=== PATIENT | male | born 1975 | race Caucasian/White ===

== ENCOUNTER 2016-03-29 10:48 | Outpatient (RCR) | payer BC ==
[~2016-03-29 10:48] MED LIST: ACHD5005 PO; HYDR-3454 PO
--- OUTSIDE RECORDS SUMMARY | 2016-03-29 10:51 | XMS REPORT | Continuity of Care Document ---
Author Author [facility] Organization [facility] Address Unknown Phone Unavailable Care Team Providers Care Cured [employer] P[employer] Supervisor Name Role Phone Garcia Zazueta III PCP [phone] Source Comments Some departments are not documenting in the electronic medical record. If you do not see the information that you expected, contact Release of Information in the Health Information Management department at [phone] for further assistance in locating additional records.[facility] Active Allergies and Adverse Reactions Allergen Noted Date Severity Reactions Comments Pcn 09/14/2014 Low UNKNOWN Sulfa (Sulfonamide 09/14/2014 Low UNKNOWN Antibiotics) Current Medications Prescription Sig. Disp. Refills Start End Date Status Date lisinopril (PRINIVIL; Take 5 mg by mouth daily. Active ZESTRIL) 5 mg tablet metoprolol XL (TOPROL XL) Take 25 mg by mouth Active 25 mg tablet daily. Active Problems Problem Noted Date Congenital pulmonary vein stenosis Aortic regurgitation Left ventricular hypertrophy Tricuspid regurgitation Thoracic aortic aneurysm (HCC) Cardiomegaly Aortic regurgitation Dilated aortic root (HCC) Congenital pulmonary vein stenosis Thoracic aortic aneurysm (HCC) Most Recent Encounters Date Type Specialty Providers Description 03/28/2016 Orders Only Cardiothoracic Surgery Kristin Grove RN Thoracic aortic aneurysm without rupture (HCC) (Primary Dx) Social History Tobacco Use Types Packs/Day Years Used Date Former Smoker 4 Quit: 04/15/1992 Alcohol Use Drinks/Week oz/Week Comments Yes 4 Standard 2.0 drinks or equivalent Last Filed Vital Signs Vital Sign Reading Time Taken Blood Pressure 142/84 03/15/2015 12:46 PM [employer]OR [employer]ODGE CLERK Pulse 72 09/14/2014 1:44 PM CDT Temperature - - Respiratory Rate - - Height 1.854 m (6' 1") 03/15/2015 12:46 PM [employer]OD[employer] CLERK Weight 95.255 kg (210 lb) 03/15/2015 12:46 PM [employer] LODGE CLERK Body Mass Index 27.71 03/15/2015 12:46 PM MOTOR LODGE CLERK Oxygen Saturation 98% 09/14/2014 1:44 PM CDT Plan of Care Date Type Specialty Providers Description 04/10/2016 Appointment Cardiothoracic Surgery JaceyDouglas MD [address] [facility] [address] [place] [address] [phone] (Fax) Health Maintenance Due Date Last Done Comments Physical (Comprehensive) 1980 Exam Pertussis Vaccine 1984 Tetanus Vaccine 1990 Influenza Vaccine 12/15/2015 Results from Last 3 Months Not on file
== END 2016-06-27 | disposition home or self-care (01) ==
LOC: CARD 10:48
PROVIDERS: ATTEND Internal Medicine Cardiovascular Disease
DX: I71.2 Thoracic aortic aneurysm, without rupture (principal); R07.9 Chest pain, unspecified; H34.9 Unspecified retinal vascular occlusion; I35.1 Nonrheumatic aortic (valve) insufficiency
CPT/HCPCS: 93225; 93226

== ENCOUNTER → 2019-03-13 | Outpatient (CLI) | payer OTHER ==
[2019-03-13 09:14] LABS: INR 1.2 (0.8-1.4); PROTHROMBIN TIME PATIENT 15.8 SEC (12.2-14.7)
== END ==
LOC: LAB 08:50
PROVIDERS: ATTEND Internal Medicine Cardiovascular Disease
DX: Z51.81 Encounter for therapeutic drug level monitoring (principal); Z95.2 Presence of prosthetic heart valve
CPT/HCPCS: 36415; 85610

== ENCOUNTER 2019-10-05 08:11 | Outpatient (RCR) | payer OTHER | END 2020-01-03 | disposition home or self-care (01) | LOC: CARD 08:11 | PROVIDERS: ATTEND Internal Medicine Cardiovascular Disease | DX: I11.9 Hypertensive heart disease without heart failure (principal); Q22.1 Congenital pulmonary valve stenosis; R42 Dizziness and giddiness; R00.1 Bradycardia, unspecified | CPT/HCPCS: 93225; 93226 ==

== ENCOUNTER → 2020-01-18 | Outpatient (CLI) | payer OTHER | LOC: CARD 11:30 | PROVIDERS: ATTEND Physician Assistant | DX: I36.1 Nonrheumatic tricuspid (valve) insufficiency (principal); Q22.1 Congenital pulmonary valve stenosis; I10 Essential (primary) hypertension; H34.9 Unspecified retinal vascular occlusion; Z95.2 Presence of prosthetic heart valve | CPT/HCPCS: 93306 ==

== ENCOUNTER → 2021-05-16 | Outpatient (CLI) | payer OTHER | LOC: CARD 11:30 | PROVIDERS: ATTEND Internal Medicine Cardiovascular Disease | DX: I11.9 Hypertensive heart disease without heart failure (principal); I08.8 Other rheumatic multiple valve diseases; Z95.2 Presence of prosthetic heart valve | CPT/HCPCS: 93306 ==

== ENCOUNTER 2021-12-27 06:29 | Outpatient (CLI) | payer OTHER ==
[~2021-12-27] VITALS: Ht 180.3 cm; Wt 95.3 kg
[2021-12-27] MEDS ORDERED: MTP25TSR PO (12:17)
[2021-12-27] MEDS ORDERED: ASPI-1238 PO (12:17)
[2021-12-27] MEDS ORDERED: LOSA50TA63 PO (12:17)
== END 2021-12-27 12:24 | disposition home or self-care (01) ==
LOC: PREOP 06:29
PROVIDERS: ATTEND Surgery
DX: Z01.818 Encounter for other preprocedural examination (principal)

== ENCOUNTER 2022-01-09 07:05 | Day surgery (SDC) | payer OTHER ==
[~2022-01-09] VITALS: Ht 180.3 cm; Wt 95.3 kg
[~2022-01-09 07:05] MED LIST changes: +ASPI-1238 PO; +LOSA50TA63 PO; +MTP25TSR PO
[2022-01-09 07:20] VITALS: BP 126/102
[2022-01-09] MEDS ORDERED: LACTATED RINGERS 1,000 ML IV STA (07:22)
[2022-01-09] MEDS ORDERED: HURRICAINE EXT TUBE (BENZOCAINE) XX PRN (07:30)
[2022-01-09] MEDS ORDERED: MIDAZOLAM 2 MG/2 ML (VERSED) VIAL ONE (07:46)
[2022-01-09] MEDS ORDERED: PROPOFOL INJECTION 50 ML IV ONE (07:46)
--- NOTE | 2022-01-09 07:52 | Progress Note-Pre Operative ---
Pre-Operative Progress Note Date of Available H&P: Dec 20, 2021 Date H&P Reviewed: Jan 09, 2022 Time H&P Reviewed: 07:49 History & Physical: H&P Reviewed, Patient Examed, No changes noted Pre-Operative Diagnosis: elevated cea SHONNA LARA DO Jan 09, 2022 07:52
[2022-01-09 08:20] VITALS: BP 112/76
[2022-01-09 08:25] VITALS: BP 163/89
--- NOTE | 2022-01-09 08:28 | Discharge Inst-Simple/Standard ---
Discharge Inst-Standard Patient Instructions/Follow Up Plan of Care/Instructions/FU: 2 weeks Christiana Activity as Tolerated: Yes Discharge Diet: Regular Diet (high fiber) SHONNA LARA DO Jan 09, 2022 08:28
[2022-01-09 08:50] VITALS: BP 158/80
[2022-01-09 08:55] VITALS: BP 158/80
--- NOTE | 2022-01-09 11:10 | OPERATIVE REPORT ---
DATE OF SERVICE: 01/09/2022 PREOPERATIVE DIAGNOSIS: Elevated CEA. POSTOPERATIVE DIAGNOSES: Normal EGD, diverticulosis, cecal inflammation. SURGEON: Shonna Villeda DO. ANESTHESIA: Per SENIOR QA ANALYST. PROCEDURES PERFORMED: EGD with biopsies and colonoscopy with cold biopsy of the cecum. INDICATIONS FOR PROCEDURE: The patient is a 46-year-old male with screening of blood work that demonstrated an elevated CEA. We discussed doing an EGD and colonoscopy for further evaluation. He understands risks and benefits of the procedure and wished to proceed. Consent was signed in the chart. DESCRIPTION OF PROCEDURE: The patient was taken to the endoscopy suite and placed in the left lateral recumbent position. A timeout was performed. Scope was inserted in the mouth, down the esophagus, stomach and into the duodenum without difficulty. No polyps, masses or ulcerations within the duodenum. Scope was slowly retracted back into the stomach, where it was further insufflated. No polyps, masses or ulcerations. Biopsy of the antrum was obtained. Scope was retroflexed noting no other pathology. Scope was returned to its normal position, slowly withdrawn to distal esophagus. Biopsy of the GE junction was obtained. Scope was slowly retracted back until completely removed noting no other pathology. Digital rectal exam was performed. No palpable polyps, masses or ulcerations. Prostate had normal size without any nodules. Scope was inserted in the rectum and advanced all the way to cecum with minimal difficulty. Prep was adequate with irrigation and suction. In the cecum, there was a very small area of some inflammation. Cold biopsy of this area was obtained. Scope was then slowly retracted back. No polyps, masses or ulcerations within the cecum, ascending, transverse, descending, and sigmoid colon. In the sigmoid colon, there was some diverticulosis present. Scope was continuously retracted back into the rectum, where it was also retroflexed noting no other pathology. Scope was returned to its normal position, slowly withdrawn until completely removed. The patient tolerated the procedure well without any complications and taken to the recovery room in stable condition. RECOMMENDATIONS: The patient will follow up in 2 weeks to discuss pathology results. We will repeat colonoscopy in 10 years unless family history of colon cancer or personal history of polyps, which would then be 5 years. Any issues before that be seen at that time. We would consider repeating CEA level. Job ID: [id number] DocumentID: [id number] Dictated Date: 01/09/2022 08:32:27 Emergency Communications Officer Date: 01/09/2022 11:09:45 Dictated By: SHONNA VILLEDA DO
--- NOTE | 2022-01-09 11:52 | Anesthesia-General Post-Op ---
MAC Patient Condition Mental Status/LOC: Same as Preop Cardiovascular: Satisfactory Nausea/Vomiting: Absent Respiratory: Satisfactory Pain: Controlled Complications: Absent Post Op Complications Complications None Follow Up Care/Instructions Patient Instructions None needed. Anesthesiology Discharge Order Discharge Order Patient is doing well, no complaints, stable vital signs, no apparent adverse anesthesia problems. No complications reported per nursing. CATRINA GODWIN CRNA Jan 09, 2022 11:52
== END 2022-01-09 08:55 | disposition home or self-care (01) ==
LOC: ENDO 07:05
PROVIDERS: ATTEND Surgery
DX: K29.50 Unspecified chronic gastritis without bleeding (principal); K31.89 Other diseases of stomach and duodenum; K57.30 Diverticulosis of large intestine without perforation or abscess without bleeding; K52.9 Noninfective gastroenteritis and colitis, unspecified; E66.9 Obesity, unspecified; Z68.29 Body mass index [BMI] 29.0-29.9, adult
CPT/HCPCS: 88305

== ENCOUNTER → 2022-08-29 | Outpatient (CLI) | payer OTHER ==
[~2022-08-29] MED LIST changes: +HOLD METFORMIN - RECEIVED CONTRAST 20 ML VIAL IV SCH; +IOHEXOL 350 MG/ML 100 ML (OMNIPAQUE 350) VIAL IV ONE; +NS 100 ML (IVPB) BAG IV ONE
--- NOTE | 2022-08-29 08:44 | Diagnostic Imaging Report ---
EXAMINATION: CT angiography of the chest. TECHNIQUE: Contrast enhanced thin section helical images were obtained through the chest with intravenous contrast timed for the optimal opacification of the arterial structures per CTA protocol. Post-processing, reconstructions and interpretation of angiographic images of the vessels was performed. 3D MIP reconstructions were performed and reviewed. All CT scans use one or more of the following dose optimizing techniques: automated exposure control, MA and/or KvP adjustment based on a patient size and exam type, or iterative reconstruction. HISTORY: Thoracic aortic aneurysm status post repair COMPARISON: 05/27/2014 FINDINGS: Vascular: The main pulmonary artery is dilated up to 5.0 cm. Surgical changes of the aortic root. The proximal ascending thoracic aorta measures 4.2 cm. There is aneurysmal dilatation of the aortic arch measured up to 3.9 cm. No significant stenosis or dissection. Thyroid: The thyroid is normal. Mediastinum: Heart size is normal without significant pericardial effusion. No suspicious lymphadenopathy. Lungs and airways: The lungs are clear without consolidation, pleural effusion, or pneumothorax. There is atelectasis within the dependent lungs. The airways are normal. Upper abdomen: The subphrenic structures are normal. Musculoskeletal: Degenerative changes of the spine without suspicious osseous lesion or compression fracture. 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 IMPRESSION: 1. Aneurysmal dilatation of the aortic arch measuring up to 3.9 cm. 2. Surgical changes from aortic valve repair with mild aneurysmal dilatation of the proximal ascending thoracic aorta measuring up to 4.2 cm. 3. No other acute abnormality in the chest. 4. Stable enlargement of the main pulmonary artery up to 5.0 cm which can be seen with pulmonary arterial hypertension. Dictated by: Dictated on workstation # [id number]
== END ==
LOC: RAD 07:39
PROVIDERS: ATTEND Internal Medicine Cardiovascular Disease
DX: I71.20 Thoracic aortic aneurysm, without rupture, unspecified (principal); I28.1 Aneurysm of pulmonary artery; Z98.890 Other specified postprocedural states
CPT/HCPCS: 71275

== ENCOUNTER → 2022-08-31 | Outpatient (CLI) | payer OTHER ==
[~2022-08-31] MED LIST changes: -HOLD METFORMIN - RECEIVED CONTRAST 20 ML VIAL IV SCH; -IOHEXOL 350 MG/ML 100 ML (OMNIPAQUE 350) VIAL IV ONE; -NS 100 ML (IVPB) BAG IV ONE
== END ==
LOC: CARD 08:46
PROVIDERS: ATTEND Internal Medicine Cardiovascular Disease
DX: I08.2 Rheumatic disorders of both aortic and tricuspid valves (principal); Z95.2 Presence of prosthetic heart valve
CPT/HCPCS: 93306